=== PATIENT | female | born 1990 | race Caucasian/White ===

== ENCOUNTER 2016-05-26 16:19 | Emergency (ER) | payer OTHER ==
[~2016-05-26 16:19] MED LIST: ABILIFY PO; AUGMENTIN875 MG PO; BACTRIM DS TABL1 TA1 PO; CONCERTA54 M1 PO; DEPAKOTE PO; DEPO SHOT; DIFLUCAN100 MG PO; DOXYCYCLINE; ILOTYCIN1 GM OU; METRONIDAZOLE PO; MIRALAX17 GM PO; NAPROSYN500 MG PO; NO MEDICATIONS
[2016-05-26] MEDS ORDERED: PRENATAL1 TA1 PO (16:21)
== END 2016-05-26 16:58 | disposition home or self-care (01) ==
LOC: SED 16:19
DX: K12.0 Recurrent oral aphthae (principal); F31.9 Bipolar disorder, unspecified; F90.9 Attention-deficit hyperactivity disorder, unspecified type; F17.210 Nicotine dependence, cigarettes, uncomplicated
CPT/HCPCS: 87651; 99282

== ENCOUNTER 2016-07-13 15:10 | Emergency (ER) | payer OTHER ==
[~2016-07-13 15:10] MED LIST changes: +PRENATAL1 TA1 PO
== END 2016-07-13 15:22 | disposition home or self-care (01) ==
LOC: SED 15:10
DX: L02.413 Cutaneous abscess of right upper limb (principal); F17.210 Nicotine dependence, cigarettes, uncomplicated; Z98.890 Other specified postprocedural states
CPT/HCPCS: 99282